=== PATIENT | female | born 1990 | race Caucasian/White ===

== ENCOUNTER → 2016-10-29 | Outpatient (CLI) | payer OTHER ==
[~2016-10-29] MED LIST: ZOFRAN ODT4 MG SL
[2016-10-29 10:49] LABS: HEMATOCRIT 42.5 % (37.0-47.0); HEMOGLOBIN 14.2 g/dl (12.0-16.0); MEAN CELL VOLUME 95.7 fl (81.0-99.0); MEAN CORPUSCULAR HGB CONC 33.4 g/dl (33.0-37.0); MEAN PLATELET VOLUME 10.9 fl (9.6-12.3); RED BLOOD COUNT 4.44 10*6/uL (4.10-5.10); RED CELL DISTRI WIDTH 12.2 % (0-14.5)
[2016-10-29 11:20] LABS: ALBUMIN 3.8 gm/dl (3.1-4.5); BUN 8 mg/dl (7-24); CARBON DIOXIDE 27 mmol/L (21-32); CHLORIDE 108 mmol/L (98-107); GLUCOSE 88 mg/dL (65-99); POTASSIUM 4.4 mmol/L (3.5-5.1); SODIUM 140 mmol/L (136-145)
[2016-10-29 11:33] LABS: ALKALINE PHOSPHATASE 86 U/L (45-117); BILIRUBIN, TOTAL 0.3 mg/dl (0.2-1.0); CHOLESTEROL 128 mg/dL (<200); EST GLOM FILT AFRICAN AMERICAN > 60 ml/min; HDL CHOLESTEROL 26 mg/dl (40-60); LDL CHOLESTEROL 85 mg/dL (9-159); SGOT/AST 16 IU/L (3-35); SGPT/ALT 19 U/L (12-78); TOTAL PROTEIN 7.1 gm/dL (6.4-8.2); TRIGLYCERIDES 87 mg/dl (<150); VLDL CHOLESTEROL 17 mg/dL (6-40)
[2016-10-29 13:02] LABS: VITAMIN D, 25-HYDROXY 15.8 ng/mL (30-100)
== END | disposition home or self-care (01) ==
LOC: LAB 10:27
PROVIDERS: Family Medicine
DX: E78.00 Pure hypercholesterolemia, unspecified (principal); E55.9 Vitamin D deficiency, unspecified; R53.83 Other fatigue; D64.9 Anemia, unspecified

== ENCOUNTER 2022-09-18 09:44 | Emergency (ER) | payer BC ==
[~2022-09-18] VITALS: Wt 83.9 kg
[2022-09-18] MEDS ORDERED: VIBRAMYCIN100 MG PO (12:55)
== END 2022-09-18 13:14 | disposition home or self-care (01) ==
LOC: ED 09:44
DX: H66.42 Suppurative otitis media, unspecified, left ear (principal)